=== PATIENT | female | born 1990 | race Caucasian/White ===

== ENCOUNTER 2016-11-10 12:13 | Emergency (ER) | payer OTHER ==
[~2016-11-10] VITALS: Ht 154.9 cm; Wt 99.8 kg
[2016-11-10] MEDS ORDERED: ZITH500T PO (12:28)
[2016-11-10 14:46] LABS: CALCIUM OXALATE CRYSTALS MODERATE
[2016-11-10 14:52] LABS: BASO % 0.4 % (0.0-1.0); EOS # 0.1 K/mm3 (0.0-0.50); EOS % 0.6 % (0.0-3.0); LARGE UNSTAINED CELL # 0.2 K/mm3 (0.0-0.4); LARGE UNSTAINED CELL % 1.6 % (0.0-4.0); LYMPH # 2.8 K/mm3 (1.5-6.5); LYMPH % 24.9 % (24.0-44.0); MEAN CORPUSCULAR HEMOGLOBIN 27.1 pg (27.0-33.0); MEAN CORPUSCULAR HGB CONC 32.8 g/dl (32.0-36.5); MEAN CORPUSCULAR VOLUME 82.8 fl (80.0-96.0); MONO # 0.5 K/mm3 (0.0-0.8); MONO % 4.7 % (0.0-5.0); NEUTROPHILS # 7.7 K/mm3 (1.8-7.7); NEUTROPHILS % 67.9 % (36.0-66.0); PLATELET COUNT, AUTOMATED 309 k/mm3 (150-450); RED CELL DISTRIBUTION WIDTH 13.1 % (11.5-14.5); WHITE BLOOD COUNT 11.4 K/mm3 (4.0-10.0)
[2016-11-10 15:28] VITALS: BP 133/69
--- NOTE | 2016-11-10 15:33 | REP ---
Clinical: Vaginal bleeding for dating and viability. Technique: Transabdominal first trimester obstetrical ultrasound with color Doppler evaluation. Findings: Single live early intrauterine identified. Gestational sac with yolk sac and pole noted. CRL of 2.1 cm corresponds to 8 weeks 5 days gestational age with CANDE 06/17/2017. heart rate equals 173 beats per minute. A small subchorionic hemorrhage is identified measuring 17 x 15 x 8 mm. Maternal ovaries are normal. No pelvic fluid or adnexal mass lesion. Impression: Single live early intrauterine at 8 weeks 5 days gestational age. Complete anatomical assessment should be performed at 19-20 weeks. Small subchorionic hemorrhage likely to resolve. Signed by Anthony Green MD 11/10/2016 03:25 P
[2016-11-20] MEDS ORDERED: COLA100C PO (05:04)
== END 2016-11-10 15:51 | disposition home or self-care (01) ==
LOC: M ED 14:12
DX: O20.8 Other hemorrhage in early pregnancy (principal); Z3A.08 8 weeks gestation of pregnancy; O99.331 Smoking (tobacco) complicating pregnancy, first trimester; F17.210 Nicotine dependence, cigarettes, uncomplicated

== ENCOUNTER 2016-11-19 22:46 | Day surgery (SDC) | payer OTHER, SELFPAY ==
[~2016-11-19] VITALS: Ht 152.4 cm; Wt 102.1 kg
[~2016-11-19 22:46] MED LIST: ZITH500T PO
[2016-11-20 00:18] LABS: CONTROL LINE HCG INT CTR LINE PRESENT
[2016-11-20 00:19] LABS: BASO % 0.2 % (0.0-1.0); EOS % 0.3 % (0.0-3.0); LARGE UNSTAINED CELL # 0.1 K/mm3 (0.0-0.4); LARGE UNSTAINED CELL % 0.6 % (0.0-4.0); LYMPH # 1.6 K/mm3 (1.5-6.5); LYMPH % 11.9 % (24.0-44.0); MEAN CORPUSCULAR HGB CONC 32.2 g/dl (32.0-36.5); MONO # 0.4 K/mm3 (0.0-0.8); MONO % 3.1 % (0.0-5.0); NEUTROPHILS # 10.9 K/mm3 (1.8-7.7); NEUTROPHILS % 83.9 % (36.0-66.0); PLATELET COUNT, AUTOMATED 285 k/mm3 (150-450); RED CELL DISTRIBUTION WIDTH 13.7 % (11.5-14.5)
[2016-11-20 00:43] LABS: HCG, SERUM QUANTITATIVE 71080 MIU/ML
[2016-11-20] MEDS ORDERED: ONDANSETRON 4MG/2ML VIAL (J2405) As Ordered ONE ×2 (01:00→03:39)
[2016-11-20] MEDS ORDERED: ONDANSETRON 4MG/2ML VIAL (J2405) IV ONE (01:15)
[2016-11-20 01:25] LABS: CALCIUM OXALATE CRYSTALS LARGE
[2016-11-20] MEDS ORDERED: NS 1,000 ML IV ONE (01:30)
--- NOTE | 2016-11-20 02:20 | REPUSA ---
CLINICAL HISTORY: Vaginal bleeding. TECHNIQUE: Endovaginal ultrasound of the pelvis was performed. FINDINGS: Anteverted uterus measuring 14.7x4.8x8.6 cm. Focal endometrial thickening measuring 29.7 mm. The right ovary is normal measuring 2.3x1.6x2.8 cm. The left ovary measuring 2.7x2.2x1.9 cm. IMPRESSION: Heterogeneous focal thickening of the endometrium. Probably secondary to retained products of concept ion.
[2016-11-20] MEDS ORDERED: SILVER NITRATE APPLICATOR As Ordered ONE (02:35)
[2016-11-20] MEDS ORDERED: IBUPOTC PO (02:37)
[2016-11-20] MEDS ORDERED: PROM25TA PO (02:37)
[2016-11-20] MEDS ORDERED: TYLETAB14 PO (02:37)
[2016-11-20] MEDS ORDERED: EXCETAB80 PO (02:37)
[2016-11-20] MEDS ORDERED: fentaNYL 100 MCG/2 ML INJECTION (J3010) As Ordered ONE (02:46)
[2016-11-20] MEDS ORDERED: MIDAZOLAM INJ 2 MG/2 ML VIAL (J2250) As Ordered ONE (02:46)
[2016-11-20] MEDS ORDERED: PROPOFOL 200 MG/20 ML VIAL As Ordered ONE ×2 (02:48→03:42)
[2016-11-20] MEDS ORDERED: LIDOCAINE 2% INJ 100 MG/5 ML SDV (FOR ANES.) As Ordered ONE (02:48)
[2016-11-20] MEDS ORDERED: DOXYCYCLINE HYCLATE 100 MG/10 ML VIAL As Ordered ONE (02:53)
[2016-11-20] MEDS ORDERED: SUCCINYLCHOLINE 100 MG/5 ML SYRINGE (J0330) As Ordered ONE ×2 (02:59→03:27)
[2016-11-20] MEDS ORDERED: ROCURONIUM BROMIDE 50 MG/5 ML VIAL As Ordered ONE (02:59)
[2016-11-20] MEDS ORDERED: METHYLERGONOVINE MALEATE 0.2 MG/ML VIAL (J2210) As Ordered ONE (03:34)
[2016-11-20] MEDS ORDERED: OXYTOCIN INJ 10 UNITS/ML VIAL (J2590) As Ordered ONE (03:46)
[2016-11-20] MEDS ORDERED: MEPERIDINE INJ 25 MG/ML VIAL (J2175) IV PRN (04:30)
[2016-11-20] MEDS ORDERED: LR 1,000 ML IV SCH (04:30)
[2016-11-20] MEDS ORDERED: fentaNYL 100 MCG/2 ML INJECTION (J3010) IV PRN (04:30)
[2016-11-20] MEDS ORDERED: ONDANSETRON 4MG/2ML VIAL (J2405) IV PRN ×2 (04:30→04:45)
[2016-11-20] MEDS ORDERED: MORPHINE 4 MG/ML 1ML SYRINGE IV PRN (04:45)
[2016-11-20] MEDS ORDERED: DOXYCYCLINE HYCLATE 100 MG TAB PO ONE (04:45)
[2016-11-20 04:59] VITALS: BP 123/64
[2016-11-20] MEDS ORDERED: OXYC1TAB23 PO (05:02)
[2016-11-20] MEDS ORDERED: IBUP600T26 PO (05:03)
[2016-11-20] MEDS ORDERED: COLA100C3 PO (05:04)
[2016-11-20] MEDS: LR 1,000 ML IV SCH ×2 (05:31→09:31)
[2016-11-20 05:33] VITALS: BP 100/56
--- NOTE | 2016-11-20 05:51 | RO ---
DATE OF PROCEDURE: 11/20/2016 PREOPERATIVE DIAGNOSIS: Retained products of conception, incomplete . POSTOPERATIVE DIAGNOSIS: Retained products of conception, incomplete . PROCEDURE PERFORMED: Suction dilation and curettage (D and C). SURGEON: Dr. Perez Donovan MATRIX WORKER: None. ANESTHESIA: General via LMA. SPECIMENS TO PATHOLOGY: Intrauterine tissue, products of conception. ESTIMATED BLOOD LOSS: 300 mL. FLUIDS REPLACED: 800 mL lactated Ringer's. DRAINS: In-and-out catheter, 25 mL urine output. COMPLICATIONS: None. PREOPERATIVE ANTIBIOTICS: Doxycycline 100 mg IV x1. UTEROTONICS ADMINISTERED: 10 units IM Pitocin and 0.2 mg IM Methergine. FINDINGS: Uterus sounded to 10 cm. The tissue obtained that was within the uterus was grossly consistent with products of conception. INDICATION: The patient is a 26-year-old G2, P1-0-1-1. She recently underwent medical management of an elective . She originally took her abortifacient medication on 11/14/2016. Today she continued to bleed heavily, so much that she started to feel lightheaded and dizzy and stated that the pain and bleeding were too much for her to handle. She sought further care in the [facility] ER. Given her level of pain and bleeding, the decision was made to proceed with an urgent suction dilation and curettage (D and C) to expedite removal of the products of conception. PROCEDURE: The patient was counseled and consented on risks, benefits, indications and alternatives of the procedure. Informed consent was obtained. She was taken to the operating room with an IV running and placed on the operating table in dorsal supine position. General anesthesia was administered and secured. She was placed in low lithotomy position. She was prepared and draped in normal sterile fashion. Sterile in-and-out catheter was placed to drain the bladder. Sterile speculum was placed into the vagina with good visualization of the cervix. The anterior lip of the cervix was grasped with single-tooth tenaculum and downward traction was applied. The uterus sounded to 10 cm. The cervix was sequentially dilated with Mika dilators up to #20. A size 8 Vacurette was placed transcervically into the intrauterine cavity and suction was applied. Multiple passes of the Vacurette was performed until there was minimal blood and tissue return. The Vacurette was removed. The sharp curette was placed transcervically into the intrauterine cavity and sharp curettage was performed throughout each quadrant of the uterus until gritty texture was noted throughout. Minimal bleeding and tissue return was noted. Uterotonics were administered to maintain hemostasis. An additional pass of the Vacurette was performed with minimal tissue and blood return. After removal of the Vacurette, single-tooth tenaculum was removed. The tenaculum sites were cauterized with silver nitrate. Minimal bleeding from the cervical os was noted. Sponge, lap, needle and instrument counts were correct. The patient tolerated the entire procedure very well. She was transferred to the postanesthesia care unit in good stable condition. FERNY
[2016-11-20 06:02] VITALS: BP 106/51
[2016-11-20 06:57] VITALS: BP 107/58
[2016-11-20 08:00] VITALS: BP 122/59
[2016-11-20] MEDS ORDERED: METOCLOPRAMIDE INJ 10MG/2ML VIAL (J2765) IV ONE (09:15)
[2016-11-20] MEDS ORDERED: KETOROLAC 30 MG/ML VIAL (J1885) IV ONE (09:15)
[2016-11-20 09:44] LABS: MEAN CORPUSCULAR HEMOGLOBIN 26.8 pg (27.0-33.0); MEAN CORPUSCULAR HGB CONC 31.8 g/dl (32.0-36.5); MEAN CORPUSCULAR VOLUME 84.3 fl (80.0-96.0); RED CELL DISTRIBUTION WIDTH 13.8 % (11.5-14.5); WHITE BLOOD COUNT 9.8 K/mm3 (4.0-10.0)
[2016-11-20 12:00] VITALS: BP 117/60
== END 2016-11-20 17:55 | disposition home or self-care (01) ==
LOC: EDBD 22:46 → M ED 11-20 00:08 → M OROP 11-20 02:42 → M PED 11-20 04:47 → M OROP 11-20 17:55
PROVIDERS: ATTEND Obstetrics & Gynecology
DX: O02.1 Missed abortion (principal); I10 Essential (primary) hypertension; E66.9 Obesity, unspecified; F41.9 Anxiety disorder, unspecified; F32.9 Major depressive disorder, single episode, unspecified; R51 Headache
CPT/HCPCS: 36415; 59820; 76801; 81001; 84702; 84703; 85025; 85027; 86850; 86900; 86901; 87086; 88305; 93976; 96374; 96375; 96376; 99284; J0330; J1885; J2210; J2250; J2405; J2590; J2765; J3010

== ENCOUNTER → 2017-02-14 | Outpatient (CLI) | payer MEDICAID ==
[~2017-02-14] MED LIST changes: +CELE20TA PO; +CITA20TA4 PO; +COLA100C5 PO; +EXCETAB80 PO; +IBUP-1022 PO; +IBUPOTC PO; +OXYC1TAB23 PO; +PATIENT COMMENT; +PROM25TA PO; +TRAZO50TA PO; +TYLETAB14 PO; +ZOFR20TA PO
--- NOTE | 2017-02-14 16:39 | REP ---
Clinical: Left foot and ankle pain. Rule out stress fracture. Technique: AP, lateral, bilateral oblique views of the left ankle. Findings: The osseous structures are intact and there is no evidence for acute fracture dislocation. No cortical thickening or intramedullary sclerotic changes to suggest impending stress fracture by radiographic evaluation. The ankle mortise is intact. Surrounding soft tissues are grossly unremarkable. Impression: Normal left ankle radiographs. Signed by Anthony Green MD 02/14/2017 04:30 P
--- NOTE | 2017-02-14 16:39 | REP ---
Clinical: Left foot and ankle pain. Rule out stress fracture . Technique: AP, lateral, bilateral oblique views left foot. Findings: The osseous structures and joint spaces are intact and normal. There is no evidence for acute fracture or dislocation. Surrounding soft tissues are unremarkable. No subcutaneous emphysema or radiodense foreign body. Impression: Normal examination. No acute fracture or dislocation. Signed by Anthony Green MD 02/14/2017 04:31 P
== END ==
LOC: M RAD 15:40
PROVIDERS: ATTEND Physician Assistant Medical
DX: M25.572 Pain in left ankle and joints of left foot (principal)

== ENCOUNTER → 2017-03-21 | Outpatient (REF) | payer OTHER ==
[2017-03-21 12:49] LABS: MEAN CORPUSCULAR HEMOGLOBIN 22.8 pg (27.0-33.0); MEAN CORPUSCULAR HGB CONC 31.1 g/dl (32.0-36.5); MEAN CORPUSCULAR VOLUME 73.6 fl (80.0-96.0); RED CELL DISTRIBUTION WIDTH 16.8 % (11.5-14.5); WHITE BLOOD COUNT 7.3 K/mm3 (4.0-10.0)
[2017-03-21 12:50] LABS: ALBUMIN 3.6 GM/DL (3.2-5.2); ALBUMIN/GLOBULIN RATIO 1.06 (1.00-1.93); ALKALINE PHOSPHATASE 85 U/L (45-117); ALT/SGPT 21 U/L (12-78); ANION GAP 10 MEQ/L (8-16); AST/SGOT 10 U/L (15-37); BILIRUBIN,DIRECT < 0.1 MG/DL (0.0-0.2); BILIRUBIN,TOTAL 0.4 MG/DL (0.2-1.0); BLOOD UREA NITROGEN 8 MG/DL (7-18); CALCIUM LEVEL 9.1 MG/DL (8.5-10.1); CARBON DIOXIDE LEVEL 25 MEQ/L (21-32); CHLORIDE LEVEL 107 MEQ/L (98-107); CHOLESTEROL LEVEL 223 MG/DL (<200); CREATININE FOR GFR 0.66 MG/DL (0.55-1.02); GLOMERULAR FILTRATION RATE > 60.0 (>60); GLUCOSE, FASTING 105 MG/DL (70-105); POTASSIUM SERUM 4.7 MEQ/L (3.5-5.1); SODIUM LEVEL 142 MEQ/L (136-145); TRIGLYCERIDES LEVEL 140 MG/DL (<150)
== END ==
LOC: M SFHCPLAZ 09:22
PROVIDERS: ATTEND Family Medicine
DX: D50.0 Iron deficiency anemia secondary to blood loss (chronic) (principal); Z68.45 Body mass index [BMI] 70 or greater, adult; F32.2 Major depressive disorder, single episode, severe without psychotic features

== ENCOUNTER 2017-04-16 22:11 | Inpatient (IN) | payer OTHER ==
[~2017-04-16] VITALS: Ht 149.9 cm; Wt 103.9 kg
[~2017-04-16 22:11] MED LIST changes: -CELE20TA PO; -CITA20TA4 PO; -PATIENT COMMENT; -TRAZO50TA PO; -ZOFR20TA PO
[2017-04-16 23:18] LABS: MEAN CORPUSCULAR HEMOGLOBIN 23.6 pg (27.0-33.0); MEAN CORPUSCULAR HGB CONC 31.7 g/dl (32.0-36.5); MEAN CORPUSCULAR VOLUME 74.4 fl (80.0-96.0); RED CELL DISTRIBUTION WIDTH 17.1 % (11.5-14.5)
[2017-04-16 23:52] LABS: ALBUMIN 3.4 GM/DL (3.2-5.2); ALBUMIN/GLOBULIN RATIO 0.97 (1.00-1.93); ALKALINE PHOSPHATASE 88 U/L (45-117); ALT/SGPT 26 U/L (12-78); ANION GAP 8 MEQ/L (8-16); AST/SGOT 11 U/L (15-37); BILIRUBIN,DIRECT < 0.1 MG/DL (0.0-0.2); BILIRUBIN,TOTAL 0.2 MG/DL (0.2-1.0); BLOOD UREA NITROGEN 10 MG/DL (7-18); CALCIUM LEVEL 9.1 MG/DL (8.5-10.1); CARBON DIOXIDE LEVEL 28 MEQ/L (21-32); CHLORIDE LEVEL 108 MEQ/L (98-107); CREATININE FOR GFR 0.76 MG/DL (0.55-1.02); GLOMERULAR FILTRATION RATE > 60.0 (>60); GLUCOSE, FASTING 105 MG/DL (70-105); POTASSIUM SERUM 3.8 MEQ/L (3.5-5.1); SODIUM LEVEL 144 MEQ/L (136-145); TOTAL PROTEIN 6.9 GM/DL (6.4-8.2)
[2017-04-17 00:33] LABS: METHADONE URINE NEGATIVE (NEGATIVE)
[2017-04-17] MEDS ORDERED: MAALOX 30 ML SUSP *UDC PO PRN (00:45)
[2017-04-17] MEDS ORDERED: MOM 30ML SUSPENSION UDC PO PRN (00:45)
[2017-04-17] MEDS ORDERED: traZODone 50 MG TAB PO PRN (00:45)
[2017-04-17] MEDS ORDERED: ACETAMINOPHEN TAB 650MG DOSE (2X325MG) PO PRN (00:45)
[2017-04-17] MEDS ORDERED: CITA20TA4 PO (01:11)
[2017-04-17] MEDS ORDERED: PATIENT COMMENT (01:13)
[2017-04-17 02:07] VITALS: BP 155/95
[2017-04-17 06:39] VITALS: BP 130/88
[2017-04-17] MEDS ORDERED: ZOFR20TA PO (09:14)
--- NOTE | 2017-04-17 10:01 | HPEPDOC ---
Medical History and Physical Date of Admission Apr 17, 2017 at 00:42 History and Physical PCP: [facility] ATTENDING: Dr. Bc Michael HPI: 26 yoF admitted to [facility] for unspecified depressive disorder, being medically examined today. No acute medical complaints today. Denies any fevers, chills, weakness, fatigue, CONTRERAS, CP, SOB, cough, palpitations, abdominal pain, N/V /D or changes in bowel or bladder habits. PMHx: Depression Anxiety Left foot pain. XR left ankle and foot 02/14/17 Normal examination. No acute fracture or dislocation. CONTRERAS PSHX: 12/02 with blood loss anemia Tonsillectomy SOCHX: Resides in: [facility] Marital Status: Single Kids: 1 Employment: Works at [employer] Tobacco use: Denies ETOH: Denies Illicit Drugs: Denies IV Drug Use: Denies Tattoos done unprofessionally: Denies FAMHX: Mother: Alive, anxiety Father: , brain cancer Siblings: One half sister Alive, unknown Children: Alive, well Unexpected deaths due to medical reasons: None. ROS: As noted in HPI, otherwise 11pt ROS of systems reviewed and remarkable only for LMP 04/02/17. PE: GEN: 26 yo F, appears stated age. Well-nourished, well developed. No acute distress. Alert and oriented x 3. Pleasant, interactive. HEENT: Normocephalic, atraumatic. Pupils are equal, round, and reactive to light. Extraocular movements are intact. No nystagmus appreciated. Sclera are nonicteric. Conjunctiva without injection. Nose midline. Nasal turbinates without bogginess. EACs both patent BL. TMs both visualized and miller with good cone of light, no bulging or erythema. No facial asymmetry. Moist mucous membranes. Dentition fair. Pharynx pink and moist, no cobblestoning. Neck supple , trachea midline. No lymphadenopathy or thyromegaly appreciated. CHEST: Regular rate and rhythm, +S1, +S2 LUNGS: Clear to auscultation bilaterally. No wheezes, rales, or rhonchi. Breathing appears symmetric and easy. Patient is speaking in full sentences. No accessory muscle use. ABD: Round, soft, non-tender, non-distended. +Bowel sounds throughout. No rebound or guarding. No costovertebral angle tenderness. EXT: Pulses 2+ bilaterally dorsalis pedis and radial. No lower extremity edema appreciated. SKIN: [place], dry, warm. Capillary refill <2sec. No rashes. NEURO: Alert and oriented x 3. Cranial nerves III-XII are intact. No focal deficits appreciated. EKG: Pending. A&P: 26 yoF admitted to [facility] for unspecified depressive disorder 1. Psych. Plan per Psychiatry. Obtain baseline EKG to assure the safety of psychiatric medications as they can prolong the QT interval. 2. Mild leukocytosis. MAXIMUM TEMPERATURE is noted to be 100.0 at 2214 hours . Patient is asymptomatic. Afebrile currently. Check UA/urine culture. Recheck CBC in a.m. 3. Add hCG to admission labs. 4. Follow up with PCP on discharge. 5. History of blood loss anemia. Hemoglobin is stable from recent labs. We'll also add iron studies, B12, folate. 6. H/O Left foot pain. XR [facility] Foot and ankle neg. Has appt with Podiatry to further asses. Keep appt for outpt f/u with Podiatry. 7. H/O Migraine CONTRERAS. Cont Tyl or Ibuprofen as needed. Zofran if needed. 8. Faye ARAGON present throughout exam Vital Signs Vital Signs Date Time Temp Pulse Resp B/P (MAP) Pulse Ox O2 Delivery O2 Flow Rate FiO2 04/17/17 06:39 99.3 86 20 130/88 (102) 04/17/17 01:10 98 Room Air Laboratory Data Labs 24H Laboratory Tests 2 04/16/17 23:11: Anion Gap 8, Glomerular Filtration Rate > 60.0, Calcium Level 9.1, Aspartate Amino Transf (AST/SGOT) 11L, Alanine Aminotransferase (ALT/SGPT) 26, Alkaline Phosphatase 88, Total Bilirubin 0.2, Direct Bilirubin < 0.1, Total Protein 6.9, Albumin 3.4, Albumin/Globulin Ratio 0.97L, Thyroid Stimulating Hormone (TSH) 1.420, Salicylates Level < 1.7L, Acetaminophen Level < 2.0L, Ethyl Alcohol Level < 0.003 04/16/17 23:55: Urine Amphetamines Screen NEGATIVE, Urine Benzodiazepines Screen NEGATIVE, Urine Opiates Screen NEGATIVE, Urine Methadone Screen NEGATIVE, Urine Barbiturates Screen NEGATIVE, Urine Phencyclidine Screen NEGATIVE, Urine Cocaine Metabolite Screen NEGATIVE, Urine Cannabinoids Screen NEGATIVE CBC/BMP Laboratory Tests 04/16/17 23:11 Red Blood Count 4.60, Mean Corpuscular Volume 74.4 L, Mean Corpuscular Hemoglobin 23.6 L, Mean Corpuscular Hemoglobin Concent 31.7 L, Red Cell Distribution Width 17.1 H Home Medications Scheduled Citalopram Hydrobromide (Citalopram Hydrobromide) 20 Mg Tab, 20 MG PO QHS Scheduled PRN Ondansetron HCl (Zofran) 4 Mg Tab, 4 MG PO TID PRN for NAUSEA Allergies Coded Allergies: Citalopram (Verified Adverse Reaction, Mild, NAUSEA/VOMITING, 04/17/17) Charisma Avila Apr 17, 2017 10:01
--- NOTE | 2017-04-17 10:42 | MHHPEPDOC ---
[facility] [place] History & Physical History and Physical DATE OF ADMISSION: Apr 17, 2017 at 00:42 LEGAL STATUS AT ADMISSION: . CHIEF COMPLAINT: . HISTORY OF THE PRESENT ILLNESS: Patient is a 26-year-old female, domiciled with boyfriend, daughter (7yo), working at [employer] 3yrs, PPH- having psychotherapy 4 sessions last year, & was Wellbutrin XR, before that receiving med management (Prozac, Zoloft) & therapy for about a year. She was brought in by her friend for suicidal ideations ON evaluation, patient reported that recently she went for a temp up with her friends thinking that she would be able to enjoy it for 2 days while being on the She realized that she did not like going for camping and actually was seeing the differences of opinion between the friends and one of the friends was speaking rudely to her which made her upset. She denies any physical arguments. She also denies being affected much by this kind of disagreement. But reported that while being on the She did not go for increased dose of Celexa , which was prescribed by her PCP, thinking that include probably given her nausea and vomiting, so for last 5 days. She reported that she is not on antidepressant medications. She reported that not taking her antidepressant medication did not do much for her. She reported that she has a long history of depression and anxiety and was in treatment in the past with medication management and therapy. About 2 years ago she moved with her boyfriend to the area and did not have insurance for a while , so she did not continue with her treatment. Recently she deceived her insurance back and also her PCP has been prescribing her medications so she is back on Celexa, which was being titrated up to 40 mg a day, but the last dose She was taking was 20 mg a day. She reported her depression is consist of sad mood, less energy and not wanting to deal with her daily life problems, but reported that she is able to continue to take care of herself and her daughter and also worked part-time in [employer] about 25-30 hours a week. I'll taking care of her apartment, Also. Her anxiety consists of mostly anxiety attack leading upto SOB, palpitation, last for 5min, shaking, stomach upset, worrisome thoughts in mind, She reported that she has suicidal ideas or very long time, from adolescent age group to now which are mostly passive in nature, she denies ever having active suicidal ideas or ever attempting to kill herself. She reported that she was cutting herself in the past with a knife but the last time she cut herself was or 7 years ago and denies having any urges to cut herself again." She does not want to be seen by her daughter or boyfriend with those cuts. She reported that she wants to live for her family, especially her daughter because she has always been a single parent for her. Patient is future oriented. She reported that her friend who knew about her cutting in the past was worried about her because she just came to know about patient having suicidal ideas and brought her to the hospital. Patient denies any OCD or PTSD symptoms. She also denies any manic or psychotic symptoms including paranoid ideations or hallucinations. PAST PSYCHIATRIC HISTORY: Prior Psychiatric Disorder: . SI- middle school, ER visit no admission, SIB by cutting self about 7yrs ago for about 4-5yrs, wellbutrin- anxiety provoking, does not remember what happened with Zoloft or Prozac Outpatient Treatment: Currently getting medications prescribed by PCP and trying to get appointment with psychiatry. Suicidal/Self injurious:. Patient reported having chronic suicidal ideas since her adolescent age group. She denies any recent increase in her suicidal ideas.no SA reported. SIB as noted in HPI ALLERGIES: None reported. FAMILY PSYCHIATRIC HISTORY: mom- anxiety, migraines, Denies family medical history denies substance use in the family and also denies any suicide in the family . SOCIAL HISTORY: 26 years old female, domiciled with boyfriend and 7-year-old daughter working part-time in [employer]. Denies any physical or sexual abuse ever, in the past SUBSTANCE ABUSE HISTORY: None reported. PAST MEDICAL/SURGICAL HISTORY: 1. feet- 'makes noise' & pain under Ix VITAL SIGNS: as noted below MENTAL STATUS EXAMINATION: 26yo female sitting in the chair, looks appropriate for the stated age, fair hygiene and grooming, decreased psychomotor activities, tearful, no abnormal movements, cooperative with fair eye contact, speech is normal in rate, rhythm, amount and prosody, mood is 'sad & nervous', affect constricted and mood congruent, thought process is logical and goal directed, denies suicidal and homicidal ideations, denies hallucinations, no delusions elicited, aaox3, fair immediate, short term and ferry terminal agent memory, fair insight, judgement and impulse control DIAGNOSES: 1. Major depression, recurrent, without psychosis. 2., Panic attacks, anxiety disorder, unspecified. ASSESSMENT: Biologically having family member with psychiatric illness symptoms how inadequate loading for the patient not having chronic medical illnesses and substance use can be protective for the patient. PROBLEM LIST: 1. Depression, anxiety. 2., Suicidal ideations. INITIAL TREATMENT PLAN: 1. Patient was admitted on a 9 2. Complete history was obtained. 3. With patients permission, family will be contacted and database will be expanded. 4. Patients medication regimen will be reviewed and changed accordingly. 5. Patient will be provided with protected environment. 6. Patient will be treated with individual, group, and milieu therapies. 7. Patient will receive supportive psych-education. 8. Discharge planning will commence immediately. 9. Outpatient follow-up treatment will be strongly recommended. 10. The initial treatment plan will focus initially on: * Depression. * Risk for suicide. ESTIMATED LENGTH OF STAY: 3-5 days. TIME SPENT COUNSELING AND COORDINATING INITIAL CARE: 45 minutes. Laboratory Data 24H Labs Laboratory Tests 2 04/16/17 23:11: Anion Gap 8, Glomerular Filtration Rate > 60.0, Calcium Level 9.1, Aspartate Amino Transf (AST/SGOT) 11L, Alanine Aminotransferase (ALT/SGPT) 26, Alkaline Phosphatase 88, Total Bilirubin 0.2, Direct Bilirubin < 0.1, Total Protein 6.9, Albumin 3.4, Albumin/Globulin Ratio 0.97L, Thyroid Stimulating Hormone (TSH) 1.420, Salicylates Level < 1.7L, Acetaminophen Level < 2.0L, Ethyl Alcohol Level < 0.003 04/16/17 23:55: Urine Amphetamines Screen NEGATIVE, Urine Benzodiazepines Screen NEGATIVE, Urine Opiates Screen NEGATIVE, Urine Methadone Screen NEGATIVE, Urine Barbiturates Screen NEGATIVE, Urine Phencyclidine Screen NEGATIVE, Urine Cocaine Metabolite Screen NEGATIVE, Urine Cannabinoids Screen NEGATIVE CBC/BMP Laboratory Tests 04/16/17 23:11 Red Blood Count 4.60, Mean Corpuscular Volume 74.4 L, Mean Corpuscular Hemoglobin 23.6 L, Mean Corpuscular Hemoglobin Concent 31.7 L, Red Cell Distribution Width 17.1 H Medications Scheduled Citalopram Hydrobromide (Celexa) 20 Mg Tab, 30 MG PO DAILY for depression Scheduled PRN Ondansetron HCl (Zofran) 4 Mg Tab, 4 MG PO TID PRN for NAUSEA, (Reported) Trazodone HCl (Trazodone HCl) 50 Mg Tab, 50 MG PO QHSP PRN for INSOMNIA Allergies Coded Allergies: Citalopram (Verified Adverse Reaction, Mild, NAUSEA/VOMITING, 04/17/17) INDY MIRANDA MD Apr 17, 2017 10:38
[2017-04-17] MEDS ORDERED: ONDANSETRON 4 MG TAB (S0181) PO PRN (10:45)
[2017-04-17] MEDS ORDERED: IBUPROFEN 600 MG TAB PO PRN (10:45)
[2017-04-17] MEDS ORDERED: CitaloPRAM (CeleXA) 20 MG TAB PO ONE (11:00)
[2017-04-17 11:04] LABS: CONTROL LINE HCG INT CTR LINE PRESENT
[2017-04-17 18:00] VITALS: BP 136/57
--- NOTE | 2017-04-17 20:56 | ECGEPIP ---
Stationary ECG Study [facility] Test Date: 2017-04-17 Pat Name: CHENG CANCINO Department: Room: [place] [address] Gender: F Assistant News Director: BABAR : 1990 Requested By: Charisma Avila Order Number: [id number] Reading MD: Bc Carlos Measurements Intervals [place] Rate: 68 P: 37 IA: 153 QRS: 44 QRSD: 89 T: 19 QT: 389 QTc: 417 Interpretive Statements SINUS RHYTHM WITH SINUS ARRHYTHMIA, Within normal limits for age. No prior ECG available for comparison at the time of interpretation. Electronically Signed On 04-17-2017 20:55:49 EDT by Bc Carlos
[2017-04-18 06:25] VITALS: BP 105/58
[2017-04-18 08:09] LABS: MEAN CORPUSCULAR HEMOGLOBIN 24.7 pg (27.0-33.0); MEAN CORPUSCULAR HGB CONC 32.9 g/dl (32.0-36.5); MEAN CORPUSCULAR VOLUME 74.9 fl (80.0-96.0); RED CELL DISTRIBUTION WIDTH 16.9 % (11.5-14.5); WHITE BLOOD COUNT 8.7 K/mm3 (4.0-10.0)
[2017-04-18 08:31] LABS: PERCENT SATURATION 13.3 % (13.2-45.0)
[2017-04-18] MEDS ORDERED: CitaloPRAM (CeleXA) 20 MG TAB PO SCH (09:00)
[2017-04-18] MEDS ORDERED: TRAZO50TA PO (09:23)
[2017-04-18] MEDS ORDERED: CELE20TA PO (09:23)
[2017-04-18 11:49] LABS: FOLATE 14.6 NG/ML (>5.4)
--- NOTE | 2017-04-18 13:35 | MHDSPDOC ---
[facility] Discharge Summary Discharge Summary DATE OF ADMISSION: Apr 17, 2017 at 00:42 DATE OF DISCHARGE: Apr 18, 2017 at 10:25 DISCHARGE DIAGNOSES: 1. Major depression, recurrent, [id number] in severity. 2.. Anxiety disorder, unspecified. REASON FOR ADMISSION: Depression and suicidal ideations From H&P:"HISTORY OF THE PRESENT ILLNESS: Patient is a 26-year-old female, domiciled with boyfriend, daughter (7yo), working at [employer] 3yrs, PPH- having psychotherapy 4 sessions last year, & was Wellbutrin XR, before that receiving med management (Prozac, Zoloft) & therapy for about a year. She was brought in by her friend for suicidal ideations ON evaluation, patient reported that recently she went for a temp up with her friends thinking that she would be able to enjoy it for 2 days while being on the She realized that she did not like going for camping and actually was seeing the differences of opinion between the friends and one of the friends was speaking rudely to her which made her upset. She denies any physical arguments. She also denies being affected much by this kind of disagreement. But reported that while being on the She did not go for increased dose of Celexa , which was prescribed by her PCP, thinking that include probably given her nausea and vomiting, so for last 5 days. She reported that she is not on antidepressant medications. She reported that not taking her antidepressant medication did not do much for her. She reported that she has a long history of depression and anxiety and was in treatment in the past with medication management and therapy. About 2 years ago she moved with her boyfriend to the area and did not have insurance for a while , so she did not continue with her treatment. Recently she deceived her insurance back and also her PCP has been prescribing her medications so she is back on Celexa, which was being titrated up to 40 mg a day, but the last dose She was taking was 20 mg a day. She reported her depression is consist of sad mood, less energy and not wanting to deal with her daily life problems, but reported that she is able to continue to take care of herself and her daughter and also worked part-time in [employer] about 25-30 hours a week. I'll taking care of her apartment, Also. Her anxiety consists of mostly anxiety attack leading upto SOB, palpitation, last for 5min, shaking, stomach upset, worrisome thoughts in mind, She reported that she has suicidal ideas or very long time, from adolescent age group to now which are mostly passive in nature, she denies ever having active suicidal ideas or ever attempting to kill herself. She reported that she was cutting herself in the past with a knife but the last time she cut herself was or 7 years ago and denies having any urges to cut herself again." She does not want to be seen by her daughter or boyfriend with those cuts. She reported that she wants to live for her family, especially her daughter because she has always been a single parent for her. Patient is future oriented. She reported that her friend who knew about her cutting in the past was worried about her because she just came to know about patient having suicidal ideas and brought her to the hospital. Patient denies any OCD or PTSD symptoms. She also denies any manic or psychotic symptoms including paranoid ideations or hallucinations. PAST PSYCHIATRIC HISTORY: Prior Psychiatric Disorder: . SI- middle school, ER visit no admission, SIB by cutting self about 7yrs ago for about 4-5yrs, wellbutrin- anxiety provoking, does not remember what happened with Zoloft or Prozac Outpatient Treatment: Currently getting medications prescribed by PCP and trying to get appointment with psychiatry. Suicidal/Self injurious:. Patient reported having chronic suicidal ideas since her adolescent age group. She denies any recent increase in her suicidal ideas.no SA reported. SIB as noted in HPI ALLERGIES: None reported. FAMILY PSYCHIATRIC HISTORY: mom- anxiety, migraines, Denies family medical history denies substance use in the family and also denies any suicide in the family . SOCIAL HISTORY: 26 years old female, domiciled with boyfriend and 7-year-old daughter working part-time in [employer]. Denies any physical or sexual abuse ever, in the past SUBSTANCE ABUSE HISTORY: None reported. PAST MEDICAL/SURGICAL HISTORY: 1. feet- noise & pain under Ix." CONSULTANTS INVOLVED: Medical evaluation and treatment TREATMENT AND PROGRESS ON THE UNIT : The patient was admitted on 9.39 and was started on Celexa initially patient was depressed and been tearful, but seek continuously denied any plans or intention to commit suicide. Patient was able to participate in the unit activities including group therapy, and milieu treatment. Family meeting was held and patient seems to have good family support , family members do not think that patient is in imminent danger to herself and willing to keep a close eye on her, after discharge from the hospital. Patient is willing to follow up outpatient for treatment. HOSPITAL COURSE: Initially after the admission, patient was depressed and was having passive suicidal ideations. He responded well to the treatment and his mood stabilized more. Denied any suicidal or homicidal ideations and also denied any craving for drugs and refused to go for outpatient treatment for substance use , even after explaining the need for it multiple times. Patient did not need any restraints. Constant observations or IM medications while being in the hospital DISCHARGE ASSESSMENT:. Patient reported that his mood has been more stable and denied any elation or grandiosity. He also denied any suicidal or homicidal ideations, intentions or plans. He denied any psychotic symptoms including paranoid ideations or hallucinations. MENTAL STATUS EXAMINATION ON DISCHARGE: 26yo female sitting in the chair, looks appropriate for the stated age, fair hygiene and grooming, normal psychomotor activities, no abnormal movements, cooperative with fair eye contact, speech is normal in rate, rhythm, amount and prosody, mood is 'fine', affect full and mood congruent, thought process is logical and goal directed, denies suicidal and homicidal ideations, denies hallucinations, no delusions elicited, aaox3, fair immediate, short term and long term care administrator memory, fair insight, judgement and impulse control MEDICATIONS ON DISCHARGE: -Celexa 30 mg daily for. Depression and anxiety. -Trazodone 50 mg HS PRN for sleep problems. PLAN/FOLLOWUP ARRANGEMENTS: As arranged and noted by strategic planner. The amount of time spent in the coordination of care for this patient was approximately 30 minutes. Vital Signs/I&Os Vital Signs Date Time Temp Pulse Resp B/P (MAP) Pulse Ox O2 Delivery O2 Flow Rate FiO2 04/18/17 06:25 97.9 82 18 105/58 (74) 04/17/17 18:00 97 04/17/17 01:10 Room Air Laboratory Data Labs 24H Laboratory Tests 2 04/18/17 07:50: Iron Level 59, Total Iron Binding Capacity 443, Transferrin % Saturation 13.3, Ferritin 7L, Vitamin B12 Level 231L, Folate 14.6 CBC/BMP Laboratory Tests 04/18/17 07:50 Red Blood Count 4.98, Mean Corpuscular Volume 74.9 L, Mean Corpuscular Hemoglobin 24.7 L, Mean Corpuscular Hemoglobin Concent 32.9, Red Cell Distribution Width 16.9 H Medications Scheduled Citalopram Hydrobromide (Celexa) 20 Mg Tab, 30 MG PO DAILY for depression for 7 Days, #11 Scheduled PRN Ondansetron HCl (Zofran) 4 Mg Tab, 4 MG PO TID PRN for NAUSEA, (Reported) Trazodone HCl (Trazodone HCl) 50 Mg Tab, 50 MG PO QHSP PRN for INSOMNIA for 7 Days, #7 Allergies Coded Allergies: Citalopram (Verified Adverse Reaction, Mild, NAUSEA/VOMITING, 04/17/17) INDY MIRANDA MD Apr 18, 2017 13:35
== END 2017-04-18 10:25 | disposition home or self-care (01) | DRG 751 ==
LOC: M ED 22:59 → M ED INP 04-17 00:42 → M PSY 04-17 01:18
PROVIDERS: ADMIT Psychiatry & Neurology Psychiatry; ATTEND Psychiatry & Neurology Psychiatry
DX: F33.1 Major depressive disorder, recurrent, moderate (principal); F41.9 Anxiety disorder, unspecified; Z91.5 Personal history of self-harm; Z81.8 Family history of other mental and behavioral disorders; Z79.899 Other long term (current) drug therapy; Z88.8 Allergy status to other drugs, medicaments and biological substances

== ENCOUNTER → 2017-05-09 | Outpatient (REF) | payer OTHER ==
[~2017-05-09] MED LIST changes: +CELE20TA PO; +CITA20TA4 PO; +PATIENT COMMENT; +TRAZO50TA PO; +ZOFR20TA PO
== END ==
LOC: M LABDRAW1 13:25
PROVIDERS: ATTEND Family Medicine
DX: R80.9 Proteinuria, unspecified (principal); M25.50 Pain in unspecified joint

== ENCOUNTER 2017-09-20 14:59 | Emergency (ER) | payer OTHER, MEDICAID ==
[2017-09-20] MEDS: IBUPROFEN 600 MG TAB PO (17:39)
== END 2017-09-20 18:04 | disposition home or self-care (01) ==
LOC: M ED 14:59
DX: S93.601A Unspecified sprain of right foot, initial encounter (principal); W18.30XA Fall on same level, unspecified, initial encounter; Y92.410 Unspecified street and highway as the place of occurrence of the external cause
CPT/HCPCS: 73630

== ENCOUNTER → 2017-12-17 | Outpatient (CLI) | payer OTHER | LOC: M SLEEP HO 14:24 | DX: G47.30 Sleep apnea, unspecified (principal) | CPT/HCPCS: G0399 ==

== ENCOUNTER → 2018-01-11 | Outpatient (REF) | payer OTHER | LOC: M LAB REF 11:48 | DX: J02.9 Acute pharyngitis, unspecified (principal) ==